=== PATIENT | female | born 1940 | race Caucasian/White ===

== ENCOUNTER 2018-06-04 09:06 | Day surgery (SDC) | payer MEDICARE, OTHER ==
[~2018-06-04 09:06] MED LIST: CEFAZOLIN 1 GM INJ
[2018-06-04] MEDS: LIDOCAINE 1% (MPF) 10 ML INJ INJ ×2 (09:19→10:10)
[2018-06-04] MEDS: BUPIVACAINE 0.5% (MPF) 10 ML VIAL INJ ×2 (09:20→10:10)
[2018-06-04] MEDS ORDERED: LACTATED RINGER'S 1,000 ML IV (09:30)
[2018-06-04] MEDS ORDERED: MIDAZOLAM 1 MG/ML 2 ML INJ (09:56)
[2018-06-04] MEDS ORDERED: ONDANSETRON 4 MG INJ (09:56)
[2018-06-04] MEDS ORDERED: PROPOFOL 20 ML (09:57)
[2018-06-04] MEDS ORDERED: LABETALOL HCL 20MG INJ IV (10:00)
[2018-06-04] MEDS ORDERED: TRIMETHOBENZAMIDE 100 MG/ML VIAL IM (10:00)
[2018-06-04] MEDS ORDERED: FENTAnyl 50 MCG/ML VIAL IV ×3 (10:00)
[2018-06-04] MEDS ORDERED: OXYCODONE/ACETAMINOPHEN (5/325) TAB PO ×2 (10:00)
[2018-06-04] MEDS ORDERED: hydrALAzine 20 MG INJ IV (10:00)
[2018-06-04] MEDS ORDERED: ONDANSETRON 4 MG INJ IV (10:00)
[2018-06-04] MEDS ORDERED: ALBUTEROL 0.083% (NEB) 2.5 MG/3 ML AMP HHN (10:00)
[2018-06-04] MEDS ORDERED: EPHEDrine SULFATE 50 MG/5 ML SYG IV (10:00)
[2018-06-04] MEDS ORDERED: IPRATROPIUM (NEB) 0.5 MG/2.5 ML AMP HHN (10:00)
[2018-06-04] MEDS ORDERED: MIDAZOLAM 1 MG/ML 2 ML INJ IV (10:00)
[2018-06-04] MEDS ORDERED: DIPHENHYDRAMINE 50 MG INJ IV (10:00)
[2018-06-04] MEDS ORDERED: MEPERIDINE 25 MG INJ IV (10:00)
[2018-06-04] MEDS ORDERED: HYDROmorphONE 1 MG/5 ML IV SYRINGE IV ×3 (10:00)
== END 2018-06-04 12:50 | disposition home or self-care (01) ==
LOC: SDS 09:06
DX: G56.02 Carpal tunnel syndrome, left upper limb (principal); E11.9 Type 2 diabetes mellitus without complications; I10 Essential (primary) hypertension; E78.5 Hyperlipidemia, unspecified; Z79.84 Long term (current) use of oral hypoglycemic drugs; Z79.4 Long term (current) use of insulin
CPT/HCPCS: 64721; 71045; 82962

== ENCOUNTER 2019-02-25 13:52 | Day surgery (SDC) | payer MEDICARE, OTHER ==
[2019-02-25] MEDS ORDERED: BUPIVACAINE 0.5% (SDV) 30 ML INJ (15:43)
[2019-02-25] MEDS ORDERED: LIDOCAINE 1% (MPF) 30 ML INJ (15:43)
[2019-02-25] MEDS ORDERED: PROPOFOL 20 ML (16:30)
[2019-02-25] MEDS ORDERED: MIDAZOLAM 1 MG/ML 2 ML INJ ×2 (16:30→16:31)
[2019-02-25] MEDS: BUPIVACAINE 0.5% (MPF) 30 ML INJ INJ (16:35)
[2019-02-25] MEDS ORDERED: FENTAnyl 50 MCG/ML VIAL (16:42)
[2019-02-25] MEDS ORDERED: CEFAZOLIN 1 GM INJ (17:00)
[2019-02-25] MEDS ORDERED: METOCLOPRAMIDE 10 MG INJ (17:02)
[2019-02-25] MEDS ORDERED: ONDANSETRON 4 MG INJ (17:02)
[2019-02-25] MEDS ORDERED: MEPERIDINE 25 MG INJ IV (17:30)
[2019-02-25] MEDS ORDERED: FENTAnyl 50 MCG/ML VIAL IV ×3 (17:30)
[2019-02-25] MEDS ORDERED: hydrALAzine 20 MG INJ IV (17:30)
[2019-02-25] MEDS ORDERED: LABETALOL HCL 20MG INJ IV (17:30)
[2019-02-25] MEDS ORDERED: OXYCODONE/ACETAMINOPHEN (5/325) TAB PO ×2 (17:30)
[2019-02-25] MEDS ORDERED: MIDAZOLAM 1 MG/ML 2 ML INJ IV (17:30)
[2019-02-25] MEDS ORDERED: METOCLOPRAMIDE 10 MG INJ IV (17:30)
[2019-02-25] MEDS ORDERED: ONDANSETRON 4 MG INJ IV (17:30)
[2019-02-25] MEDS ORDERED: DIPHENHYDRAMINE 50 MG INJ IV (17:30)
[2019-02-25] MEDS ORDERED: EPHEDrine 25 MG/5 ML SYG IV (17:30)
== END 2019-02-25 18:22 | disposition home or self-care (01) ==
LOC: SDS 13:52
DX: G56.01 Carpal tunnel syndrome, right upper limb (principal); I10 Essential (primary) hypertension; E11.9 Type 2 diabetes mellitus without complications; E78.5 Hyperlipidemia, unspecified; Z79.82 Long term (current) use of aspirin; Z79.84 Long term (current) use of oral hypoglycemic drugs; Z79.4 Long term (current) use of insulin
CPT/HCPCS: 64721; 82962